=== PATIENT | female | born 1970 | race Caucasian/White ===

== ENCOUNTER → 2018-10-11 18:43 | Outpatient (CLI) | payer BC, SELFPAY | DX: J02.9 Acute pharyngitis, unspecified (principal) ==

== ENCOUNTER 2025-09-23 09:14 | Outpatient (CLI) | payer BC, SELFPAY ==
--- NOTE | 2025-09-23 09:17 | XR_ITS ---
FINAL REPORT CLINICAL HISTORY: chest congestion COMPARISON: None FINDINGS: PA and lateral views of the chest were obtained. There is a nodule in the right perihilar region measuring [address] correlation recommended to assess if the lesion is calcified. The left lung is clear. There is no evidence of pneumonia. The mediastinum has a normal appearance. The cardiac silhouette is unremarkable. IMPRESSION: No evidence of pneumonia. Right perihilar nodule. Chest CT correlation recommended, ideally with contrast. Reviewed, Interpreted and Dictated by Robert Sutton MD Transcribed by Malini Mejias Authenticated and [facility]
--- OUTSIDE RECORDS SUMMARY | 2025-09-23 09:19 | XMS_ITS | Clinical Summary ---
[facility] Address [address] [place] [address] Care Team Providers Care C++ Quant Developer Name Role Phone Yara Mcgregor Primary Care Provider [phone] Allergies Active Allergy Reactions Criticality Noted Date Comments Amoxicillin Rash Low 04/10/2020 Cephalexin Anaphylaxis High 04/10/2020 Medications tiotropium bromide monohydrate (Spiriva Respimat) 2.5 MCG/ACT aerosol solution inhaler Inhale 2 puffs Daily 4 g 5 12/30/2020 7:43 AM EST 07/04/2020 Active albuterol sulfate HFA 108 (90 Base) MCG/ACT inhaler Inhale 2 puffs Every 6 (Six) Hours As Needed for Wheezing. 18 g 2 07/04/2020 Active Active Problems Problem Noted Date Diagnosed Date Other emphysema 05/30/2020 Hilar adenopathy 05/30/2020 Cigarette nicotine dependence without complicati on 04/13/2020 Resolved Problems Problem Noted Date Diagnosed Date Resolved Date Pneumonia of right lower lob e due to infectious organism 04/13/2020 08/11/2020 Immunizations Immunization Administration Dates Next Due Hepatitis B Adult/Adolescent IM 07/22/2014 MMR 07/22/2014 TD Preservative Free (Tenivac) 09/11/2005 Social History Tobacco Use Types Packs/Day Years Used Date Smoking Tobacco: Every Day Cigarettes 1 30 Smokeless Tobacco: Never Tobacco Cessation:Ready to Q uit: No Alcohol Use Standard Drinks/Week Comments Never 0 (1 standard drink = 0.6 oz pur e alcohol) AUDIT-C Answer Date Recorded Q1: How often do you have a drink containing alc ohol? Never 04/10/2020 Average Number of Drinks Not on file 020 Frequency of Binge Drinking Not on file 03/13 Abuse Screen Answer Date Recorded Unsafe at Home or Work/School Not on file Feels Threatened by Someone? Not on file 09/2023 Does Anyone Keep You from Co ntacting Others or Doint Things Outside the Home? Not on file 08/21/2023 Physical Sign of Abuse Present Not on file 1 Housing Stability Answer Date Recorded Current Living Arrangements Not on file 08/11 Potentially Unsafe Housing Conditions Not on tad e 08/21/2023 Family and Community Support Answer Alli e Recorded Help with Day-to-Day Activities Not on file 08/21/2023 Lonely or Isolated Not on file 08/21/2023 Employment Answer Date Recorded Do you want help finding or keeping work or a jean b? Not on file 08/21/2023 Disabilities Answer Date Recorded Concentrating, Remembering, or Making Decisions Difficulty Not on file 08/21/2023 Doing Errands Independently Difficulty Not on fi le 08/21/2023 Education Answer Date Recorded Help with school or training? Not on file Preferred Language Not on file 08/21/2023 Comments No Sex and Gender Information Value Date Recorded Sex Assigned at Not on file Legal Sex Female 1:20 PM EST Gender Identity Not on file Sexual Orientation Not on file Last Filed Vital Signs Vital Sign Reading Time Taken Comments Blood Pressure 140/82 08/11/2020 9:03 AM EDT Pulse 86 08/11/2020 9:03 AM EDT Temperature 36.4 C (97.5 F) 08/11/2020 9:03 AM EDT Respiratory Rate 18 04/25/2020 10:5 0 AM EDT Oxygen Saturation 92% 08/11/2020 9:0 3 AM EDT room air seated Inhaled Oxygen Concentration - - Weight 103 kg (227 lb) 08/11/2020 9:03 AM EDT Height 160 cm (5' 3 ) 08/11/2020 9:03 AM EDT Body Mass Index 40.21 08/11/2020 9:03 AM EDT Plan of Treatment Health Maintenance Due Date Last Done Comments Annual Gynecologic Pelvic and Breast Exam 1972 MAMMOGRAM 2012 TDAP/TD VACCINES (2 - Tdap) 09/11/2015 09/11/2005 COLOGUARD 2017 COLON CANCER SCREENING 5 YEAR SIGMOIDOSCOPY 2017 COLONOSCOPY 2017 [address] CANCER SCREENING 2017 CT COLONOGRAPHY 2017 FECAL OCCULT BLOOD TEST 2017 FIT Testing (1 year) 2017 ANNUAL PHYSICAL 04/11/2020 HEPATITIS C SCREENING 04/11/2020 Pneumococcal Vaccine 50+ (1 of 1 - PCV) 2022 ZOSTER VACCINE (1 of 2) 2022 INFLUENZA VACCINE 06/11/2025 Insurance [employer] Member Subscriber Plan / Payer (Ef fective 2017-Present) Name:Agnieszka Montes Relation to Subscriber:Self Name:Agnieszka Montes Payer ID:[id number] (NAIC) Type:Not on file Address: [facility] [id number] [place] [phone] Care Teams C++ Quant Developer Relationship Specialty Start Date End Date Yara Mcgregor [place] [address] PCP - General Physician Molder Labels 04/13/20
== END 2025-09-23 23:59 | disposition home or self-care (01) ==
LOC: RAD 09:15
PROVIDERS: PCP Physician Assistant; Visit Provider Nurse Practitioner
DX: R91.1 Solitary pulmonary nodule (principal); R09.89 Other specified symptoms and signs involving the circulatory and respiratory systems
CPT/HCPCS: 71046